=== PATIENT | male | born 2000 | race African-American/Black ===

== ENCOUNTER 2022-07-09 23:58 | Emergency (ER) | payer MEDICAID ==
[~2022-07-09] VITALS: Ht 193 cm; Wt 132.0 kg
[2022-07-10] MEDS ORDERED: HYDROCODONE/ACETAMINOPHEN 5/325MG TABLET PO ONE (00:15)
[2022-07-10 01:00] VITALS: BP 132/66
[2022-07-10] MEDS ORDERED: IBUP-2029 MT (01:00)
== END 2022-07-10 01:41 | disposition home or self-care (01) ==
LOC: ER 23:58
DX: S83.005A Unspecified dislocation of left patella, initial encounter (principal); J45.909 Unspecified asthma, uncomplicated; X58.XXXA Exposure to other specified factors, initial encounter; Y93.67 Activity, basketball; Y92.89 Other specified places as the place of occurrence of the external cause; Y99.8 Other external cause status
CPT/HCPCS: 27560; 73562; 99284; L1830; Z7610